=== PATIENT | male | born 1975 | race Caucasian/White ===

== ENCOUNTER 2019-09-15 08:06 | Observation (INO) ==
[~2019-09-15 08:06] MED LIST: Total Joint Mixture (50 ml) IR ONE
[2019-09-15] MEDS ORDERED: *HR* FentaNYL (PF) 100 MCG/2 ML VIAL ONE (08:11)
[2019-09-15] MEDS ORDERED: Lidocaine -MPF 2% 2 ML VIAL ONE (08:11)
[2019-09-15] MEDS ORDERED: *HR* Midazolam HCl 2 MG/2 ML VIAL ONE (08:11)
[2019-09-15] MEDS ORDERED: Ondansetron 4 MG/2 ML VIAL ONE (08:11)
[2019-09-15] MEDS ORDERED: *HR* Propofol 200 MG/20 ML VIAL IVP ONE ×2 (08:11→11:07)
[2019-09-15] MEDS ORDERED: Propofol 500 MG/50 ML INFUS..BTL ONE ×3 (08:14→10:34)
[2019-09-15] MEDS ORDERED: CeFAZolin Syr 2,000MG/20 ML 2,000 MG/20 ML SYRINGE IVPB ONE (08:21)
[2019-09-15] MEDS ORDERED: Albuterol 2.5 MG/3 ML NEBULIZER IH PRN (08:21)
[2019-09-15] MEDS ORDERED: Ringers Solution, Lactated 1,000 ML IVC SCH (08:30)
[2019-09-15] MEDS ORDERED: Acetaminophen IV 1,000 MG/100 ML INFUS..BTL IVPB ONE (08:50)
[2019-09-15] MEDS ORDERED: *HR* Meperidine 25 MG/ML SYRINGE IVP PRN (08:50)
[2019-09-15] MEDS ORDERED: *HR* OxyCODONE Immed Rel 5 MG TABLET PO PRN (08:50)
[2019-09-15] MEDS ORDERED: *HR* Promethazine 25 MG/ML VIAL IVP PRN ×2 (08:50→12:52)
[2019-09-15] MEDS ORDERED: *HR* HYDROmorphone (PF) 1 MG/ML SYRINGE IVP PRN (08:50)
[2019-09-15] MEDS ORDERED: *HR* Midazolam HCl 2 MG/2 ML VIAL IVP PRN (08:50)
[2019-09-15] MEDS ORDERED: Ondansetron ODT 4 MG TAB.RAPDIS SL ONE (08:50)
[2019-09-15] MEDS ORDERED: *HR* FentaNYL (PF) 100 MCG/2 ML VIAL IVP PRN (08:50)
[2019-09-15] MEDS ORDERED: Famotidine 20 MG/2 ML VIAL IVP ONE (08:50)
[2019-09-15] MEDS ORDERED: diazePAM 5 MG TABLET PO ONE (08:50)
[2019-09-15] MEDS ORDERED: ROPIVACAINE/PF/NS 0.25% 1 EACH SYRINGE INTRAART ONE (09:00)
[2019-09-15] MEDS ORDERED: Lidocaine -MPF 2% 5 ML VIAL ONE (09:08)
[2019-09-15] MEDS ORDERED: *HR* PHENYLEPHRINE 1,000 MCG/10 ML SYRINGE IVP ONE ×2 (09:35→10:46)
[2019-09-15] MEDS ORDERED: Tranexamic Acid 1,000 MG/10 ML VIAL ONE (09:45)
[2019-09-15] MEDS ORDERED: Dexamethasone 4 MG/ML VIAL ONE (10:26)
[2019-09-15] MEDS ORDERED: Ethanol\\Acetic Acid\\Na Ace\\Ben 1,000 ML IRRIG.SOLN IR ONE (11:39)
[2019-09-15 12:07] LABS: Hematocrit 41.2 % (37.5-50.1); Hemoglobin 14.2 g/dL (12.9-16.9)
[2019-09-15] MEDS ORDERED: Naloxone 0.4 MG/ML INJ IVP PRN (12:52)
[2019-09-15] MEDS ORDERED: Sennosides 8.6 MG TABLET PO PRN (12:52)
[2019-09-15] MEDS ORDERED: Ondansetron 4 MG/2 ML VIAL IVP PRN (12:52)
[2019-09-15] MEDS ORDERED: Temazepam 15 MG CAPSULE PO PRN (12:52)
[2019-09-15] MEDS ORDERED: MOM Conc 10 ML UD.LIQ PO PRN (12:52)
[2019-09-15] MEDS: Loratadine 10 MG TABLET PO SCH (14:20)
[2019-09-15] MEDS: Gabapentin 300 MG CAPSULE PO SCH ×3 (14:21→20:47)
[2019-09-15] MEDS: Multivit/Ca/Min/Fe/FA 1 TAB TABLET PO SCH (14:21)
[2019-09-15] MEDS: Ketorolac 30 MG/ML VIAL IVP SCH ×2 (14:21→17:56)
[2019-09-15] MEDS: HYDROcodone BIT/Homatropine 5 MG TABLET PO PRN ×2 (16:47→20:47)
[2019-09-15] MEDS: Ascorbic Acid 500 MG TABLET PO SCH (16:47)
[2019-09-15] MEDS: *HR* OxyCODONE Immed Rel 5 MG TABLET PO PRN ×2 (19:01→23:03)
[2019-09-15] MEDS: Ringers Solution, Lactated 1,000 ML IVC SCH (20:37)
[2019-09-16] MEDS: Ketorolac 30 MG/ML VIAL IVP SCH ×4 (00:05→17:17)
[2019-09-16] MEDS: HYDROcodone BIT/Homatropine 5 MG TABLET PO PRN ×2 (02:15→18:28)
[2019-09-16] MEDS: *HR* OxyCODONE Immed Rel 5 MG TABLET PO PRN ×4 (03:08→23:16)
[2019-09-16] MEDS ORDERED: *HR* HYDROmorphone (PF) 1 MG/ML SYRINGE IVP PRN (04:41)
[2019-09-16] MEDS: *HR* Enoxaparin 30 MG/0.3 ML SYRINGE SQ SCH ×2 (06:24→17:18)
[2019-09-16] MEDS: Ascorbic Acid 500 MG TABLET PO SCH ×2 (08:55→15:08)
[2019-09-16] MEDS: Gabapentin 300 MG CAPSULE PO SCH ×3 (08:55→19:54)
[2019-09-16] MEDS: Multivit/Ca/Min/Fe/FA 1 TAB TABLET PO SCH (08:55)
[2019-09-16] MEDS: Loratadine 10 MG TABLET PO SCH (08:56)
[2019-09-16] MEDS: Ringers Solution, Lactated 1,000 ML IVC SCH ×2 (08:57→14:43)
[2019-09-16 09:31] LABS: Basophils % 0.1 %; Eosinophils % 0.1 %; Hematocrit 35.3 % (37.5-50.1); Immature Granulocytes % 0.4 % (0-4); Lymphocytes # 2.3 K/mcL (0.6-4.6); Lymphocytes % 16.7 %; Mean Corpuscular HGB Conc 33.7 g/dL (31.6-35.5); Mean Corpuscular Hemoglobin 31.2 pg (28.0-33.3); Mean Corpuscular Volume 92.4 fL (83.0-100.0); Mean Platelet Volume 10.8 fL (9.4-12.4); Monocytes % 7.4 %; Neutrophils # 10.2 K/mcL (1.6-8.9); Platelet Count 217 K/mcL (140-400); Red Blood Count 3.82 M/mcL (4.19-5.50); Red Cell Distribution Width 11.6 % (11.5-14.5); Segmented Neutrophils % 75.3 %; White Blood Count 13.5 K/mcL (4.3-11.1)
[2019-09-16 09:36] LABS: Hemoglobin 11.9 g/dL (12.9-16.9)
[2019-09-16 09:49] LABS: BUN/Creatinine Ratio 13 (6-26); Blood Urea Nitrogen 14 mg/dL (6-20); Carbon Dioxide 24 mEq/L (23-29); Chloride 100 mEq/L (98-107); Glucose 158 mg/dL (70-105); Osmolality,Calculated 278 (280-300); Sodium 132 mEq/L (136-145); eGFR For African Americans > 60 (> 60); eGFR For Non-African Americans > 60 (> 60)
[2019-09-17] MEDS: *HR* OxyCODONE Immed Rel 5 MG TABLET PO PRN ×5 (03:11→19:31)
[2019-09-17] MEDS: *HR* Enoxaparin 30 MG/0.3 ML SYRINGE SQ SCH ×2 (05:03→17:19)
[2019-09-17 05:56] LABS: Basophils % 0.2 %; Eosinophils # 0.1 K/mcL (0.0-0.6); Eosinophils % 1.3 %; Hematocrit 30.6 % (37.5-50.1); Immature Granulocytes % 0.2 % (0-4); Lymphocytes # 2.8 K/mcL (0.6-4.6); Lymphocytes % 31.1 %; Mean Corpuscular Hemoglobin 30.9 pg (28.0-33.3); Mean Corpuscular Volume 93.6 fL (83.0-100.0); Mean Platelet Volume 11.6 fL (9.4-12.4); Monocytes # 0.8 K/mcL (0.0-1.3); Neutrophils # 5.3 K/mcL (1.6-8.9); Platelet Count 170 K/mcL (140-400); Red Blood Count 3.27 M/mcL (4.19-5.50); Red Cell Distribution Width 11.9 % (11.5-14.5); Segmented Neutrophils % 58.2 %; White Blood Count 9.1 K/mcL (4.3-11.1)
[2019-09-17 06:04] LABS: Hemoglobin 10.1 g/dL (12.9-16.9)
[2019-09-17 06:13] LABS: BUN/Creatinine Ratio 16 (6-26); Blood Urea Nitrogen 15 mg/dL (6-20); Calcium 8.3 mg/dL (8.6-10.3); Carbon Dioxide 24 mEq/L (23-29); Chloride 102 mEq/L (98-107); Glucose 126 mg/dL (70-105); Osmolality,Calculated 280 (280-300); Potassium 3.6 mEq/L (3.5-5.1); Sodium 134 mEq/L (136-145); eGFR For African Americans > 60 (> 60); eGFR For Non-African Americans > 60 (> 60)
[2019-09-17] MEDS: Gabapentin 300 MG CAPSULE PO SCH ×3 (07:41→20:56)
[2019-09-17] MEDS: Ascorbic Acid 500 MG TABLET PO SCH ×2 (07:42→17:19)
[2019-09-17] MEDS: Multivit/Ca/Min/Fe/FA 1 TAB TABLET PO SCH (07:42)
[2019-09-17] MEDS: Loratadine 10 MG TABLET PO SCH (07:42)
[2019-09-17] MEDS: HYDROcodone BIT/Homatropine 5 MG TABLET PO PRN ×3 (09:26→18:53)
[2019-09-17] MEDS ORDERED: *HR* FentaNYL PATCH 12 MCG PATCH TD SCH (15:15)
[2019-09-17] MEDS: Ketorolac 30 MG/ML VIAL IVP PRN (20:56)
[2019-09-18] MEDS: Acetaminophen IV 1,000 MG/100 ML INFUS..BTL IVPB SCH ×4 (00:59→18:04)
[2019-09-18] MEDS: *HR* Enoxaparin 30 MG/0.3 ML SYRINGE SQ SCH ×2 (05:52→18:05)
[2019-09-18 07:30] LABS: BUN/Creatinine Ratio 15 (6-26); Blood Urea Nitrogen 13 mg/dL (6-20); Calcium 8.5 mg/dL (8.6-10.3); Carbon Dioxide 28 mEq/L (23-29); Chloride 100 mEq/L (98-107); Glucose 118 mg/dL (70-105); Osmolality,Calculated 281 (280-300); Potassium 3.8 mEq/L (3.5-5.1); Sodium 135 mEq/L (136-145); eGFR For African Americans > 60 (> 60); eGFR For Non-African Americans > 60 (> 60)
[2019-09-18] MEDS: Multivit/Ca/Min/Fe/FA 1 TAB TABLET PO SCH (08:42)
[2019-09-18] MEDS: Gabapentin 300 MG CAPSULE PO SCH ×3 (08:42→20:31)
[2019-09-18] MEDS: Loratadine 10 MG TABLET PO SCH (08:43)
[2019-09-18] MEDS: Ascorbic Acid 500 MG TABLET PO SCH ×2 (08:43→15:47)
[2019-09-18] MEDS: *HR* OxyCODONE Immed Rel 5 MG TABLET PO PRN ×3 (09:55→23:44)
[2019-09-18] MEDS: Ringers Solution, Lactated 1,000 ML IVC SCH ×2 (19:30→20:31)
[2019-09-18] MEDS: HYDROcodone BIT/Homatropine 5 MG TABLET PO PRN (20:31)
[2019-09-19] MEDS: Acetaminophen IV 1,000 MG/100 ML INFUS..BTL IVPB SCH ×4 (01:16→18:11)
[2019-09-19] MEDS: *HR* OxyCODONE Immed Rel 5 MG TABLET PO PRN ×3 (03:58→18:37)
[2019-09-19] MEDS: *HR* Enoxaparin 30 MG/0.3 ML SYRINGE SQ SCH ×2 (06:06→18:12)
[2019-09-19 06:09] LABS: Hematocrit 26.9 % (37.5-50.1); Hemoglobin 9.4 g/dL (12.9-16.9); Mean Corpuscular HGB Conc 34.9 g/dL (31.6-35.5); Mean Corpuscular Hemoglobin 31.1 pg (28.0-33.3); Mean Corpuscular Volume 89.1 fL (83.0-100.0); Mean Platelet Volume 10.8 fL (9.4-12.4); Platelet Count 200 K/mcL (140-400); Red Blood Count 3.02 M/mcL (4.19-5.50); Red Cell Distribution Width 11.8 % (11.5-14.5); White Blood Count 6.9 K/mcL (4.3-11.1)
[2019-09-19 06:35] LABS: BUN/Creatinine Ratio 13 (6-26); Blood Urea Nitrogen 11 mg/dL (6-20); Calcium 8.6 mg/dL (8.6-10.3); Carbon Dioxide 27 mEq/L (23-29); Chloride 101 mEq/L (98-107); Glucose 118 mg/dL (70-105); Osmolality,Calculated 286 (280-300); Potassium 3.5 mEq/L (3.5-5.1); Sodium 138 mEq/L (136-145); eGFR For African Americans > 60 (> 60); eGFR For Non-African Americans > 60 (> 60)
[2019-09-19] MEDS: Multivit/Ca/Min/Fe/FA 1 TAB TABLET PO SCH (07:33)
[2019-09-19] MEDS: Gabapentin 300 MG CAPSULE PO SCH ×3 (07:33→20:26)
[2019-09-19] MEDS: Loratadine 10 MG TABLET PO SCH (07:33)
[2019-09-19] MEDS: Ascorbic Acid 500 MG TABLET PO SCH ×2 (07:33→16:06)
[2019-09-19] MEDS: HYDROcodone BIT/Homatropine 5 MG TABLET PO PRN ×2 (08:31→14:43)
[2019-09-19] MEDS: Ringers Solution, Lactated 1,000 ML IVC SCH ×2 (10:12→20:43)
[2019-09-20] MEDS: Acetaminophen IV 1,000 MG/100 ML INFUS..BTL IVPB SCH ×2 (00:04→05:30)
[2019-09-20 04:48] LABS: Hematocrit 26.2 % (37.5-50.1); Mean Corpuscular HGB Conc 34.4 g/dL (31.6-35.5); Mean Corpuscular Hemoglobin 30.8 pg (28.0-33.3); Mean Corpuscular Volume 89.7 fL (83.0-100.0); Mean Platelet Volume 10.4 fL (9.4-12.4); Platelet Count 232 K/mcL (140-400); Red Blood Count 2.92 M/mcL (4.19-5.50); Red Cell Distribution Width 11.7 % (11.5-14.5); White Blood Count 6.4 K/mcL (4.3-11.1)
[2019-09-20 05:03] LABS: BUN/Creatinine Ratio 13 (6-26); Blood Urea Nitrogen 12 mg/dL (6-20); Calcium 8.6 mg/dL (8.6-10.3); Carbon Dioxide 27 mEq/L (23-29); Chloride 101 mEq/L (98-107); Glucose 104 mg/dL (70-105); Osmolality,Calculated 282 (280-300); Potassium 3.7 mEq/L (3.5-5.1); Sodium 136 mEq/L (136-145); eGFR For African Americans > 60 (> 60); eGFR For Non-African Americans > 60 (> 60)
[2019-09-20] MEDS: *HR* Enoxaparin 30 MG/0.3 ML SYRINGE SQ SCH ×2 (05:34→16:53)
[2019-09-20] MEDS: Gabapentin 300 MG CAPSULE PO SCH ×3 (08:27→20:45)
[2019-09-20] MEDS: Multivit/Ca/Min/Fe/FA 1 TAB TABLET PO SCH (08:27)
[2019-09-20] MEDS: Loratadine 10 MG TABLET PO SCH (08:27)
[2019-09-20] MEDS: Ascorbic Acid 500 MG TABLET PO SCH ×2 (08:27→16:53)
[2019-09-20] MEDS: Ketorolac 30 MG/ML VIAL IVP PRN (09:08)
[2019-09-20] MEDS: *HR* OxyCODONE Immed Rel 5 MG TABLET PO PRN (09:08)
[2019-09-20] MEDS ORDERED: diazePAM 2 MG TABLET PO PRN (11:15)
[2019-09-20] MEDS: *HR* OxyCODONE Immed Rel 5 MG TABLET PO SCH ×2 (12:30→16:52)
[2019-09-20] MEDS: Acetaminophen 325 MG TABLET PO SCH ×3 (12:30→23:13)
[2019-09-20] MEDS: tiZANidine 4 MG TABLET PO SCH ×4 (13:40→20:45)
[2019-09-21] MEDS: *HR* Enoxaparin 30 MG/0.3 ML SYRINGE SQ SCH ×2 (05:03→18:55)
[2019-09-21] MEDS: Acetaminophen 325 MG TABLET PO SCH ×3 (05:03→16:27)
[2019-09-21] MEDS: Multivit/Ca/Min/Fe/FA 1 TAB TABLET PO SCH (07:45)
[2019-09-21] MEDS: Gabapentin 300 MG CAPSULE PO SCH ×3 (07:46→20:53)
[2019-09-21] MEDS: Ascorbic Acid 500 MG TABLET PO SCH ×2 (07:46→16:26)
[2019-09-21] MEDS: Loratadine 10 MG TABLET PO SCH (07:47)
[2019-09-21] MEDS: *HR* OxyCODONE Immed Rel 5 MG TABLET PO PRN ×3 (07:47→16:27)
[2019-09-21] MEDS: tiZANidine 4 MG TABLET PO SCH ×4 (07:47→20:53)
[2019-09-21 11:54] LABS: Hematocrit 28.4 % (37.5-50.1); Hemoglobin 9.6 g/dL (12.9-16.9)
[2019-09-22] MEDS: Acetaminophen 325 MG TABLET PO SCH ×4 (00:13→17:43)
[2019-09-22] MEDS: *HR* Enoxaparin 30 MG/0.3 ML SYRINGE SQ SCH ×2 (05:36→17:43)
[2019-09-22] MEDS: tiZANidine 4 MG TABLET PO SCH ×4 (09:52→20:00)
[2019-09-22] MEDS: Loratadine 10 MG TABLET PO SCH (09:52)
[2019-09-22] MEDS: Gabapentin 300 MG CAPSULE PO SCH ×3 (09:52→19:59)
[2019-09-22] MEDS: Ascorbic Acid 500 MG TABLET PO SCH ×2 (09:52→15:14)
[2019-09-22] MEDS: Multivit/Ca/Min/Fe/FA 1 TAB TABLET PO SCH (09:52)
[2019-09-22 09:55] LABS: Hematocrit 28.3 % (37.5-50.1); Hemoglobin 9.4 g/dL (12.9-16.9); Mean Corpuscular HGB Conc 33.2 g/dL (31.6-35.5); Mean Corpuscular Hemoglobin 30.9 pg (28.0-33.3); Mean Corpuscular Volume 93.1 fL (83.0-100.0); Mean Platelet Volume 9.9 fL (9.4-12.4); Platelet Count 298 K/mcL (140-400); Red Blood Count 3.04 M/mcL (4.19-5.50); Red Cell Distribution Width 11.9 % (11.5-14.5); White Blood Count 7.3 K/mcL (4.3-11.1)
[2019-09-22] MEDS: *HR* OxyCODONE Immed Rel 5 MG TABLET PO PRN ×2 (10:02→15:15)
[2019-09-22 10:15] LABS: BUN/Creatinine Ratio 16 (6-26); Blood Urea Nitrogen 14 mg/dL (6-20); Calcium 8.8 mg/dL (8.6-10.3); Carbon Dioxide 26 mEq/L (23-29); Chloride 103 mEq/L (98-107); Glucose 115 mg/dL (70-105); Osmolality,Calculated 285 (280-300); Potassium 3.8 mEq/L (3.5-5.1); Sodium 137 mEq/L (136-145); eGFR For African Americans > 60 (> 60); eGFR For Non-African Americans > 60 (> 60)
[2019-09-23] MEDS: Acetaminophen 325 MG TABLET PO SCH ×4 (00:43→17:48)
[2019-09-23] MEDS: *HR* Enoxaparin 30 MG/0.3 ML SYRINGE SQ SCH ×2 (06:19→17:48)
[2019-09-23] MEDS: Gabapentin 300 MG CAPSULE PO SCH ×3 (09:21→20:25)
[2019-09-23] MEDS: Loratadine 10 MG TABLET PO SCH (09:21)
[2019-09-23] MEDS: Multivit/Ca/Min/Fe/FA 1 TAB TABLET PO SCH (09:21)
[2019-09-23] MEDS: Ascorbic Acid 500 MG TABLET PO SCH ×2 (09:21→17:48)
[2019-09-23] MEDS: tiZANidine 4 MG TABLET PO SCH ×4 (09:21→20:25)
[2019-09-23 11:11] LABS: Hematocrit 29.5 % (37.5-50.1); Hemoglobin 10.2 g/dL (12.9-16.9); Mean Corpuscular HGB Conc 34.6 g/dL (31.6-35.5); Mean Corpuscular Hemoglobin 30.7 pg (28.0-33.3); Mean Corpuscular Volume 88.9 fL (83.0-100.0); Mean Platelet Volume 9.5 fL (9.4-12.4); Platelet Count 378 K/mcL (140-400); Red Blood Count 3.32 M/mcL (4.19-5.50); White Blood Count 7.6 K/mcL (4.3-11.1)
[2019-09-23 11:30] LABS: BUN/Creatinine Ratio 14 (6-26); Blood Urea Nitrogen 13 mg/dL (6-20); Calcium 8.8 mg/dL (8.6-10.3); Carbon Dioxide 23 mEq/L (23-29); Chloride 103 mEq/L (98-107); Glucose 108 mg/dL (70-105); Osmolality,Calculated 281 (280-300); Sodium 135 mEq/L (136-145); eGFR For African Americans > 60 (> 60); eGFR For Non-African Americans > 60 (> 60)
[2019-09-24] MEDS: Acetaminophen 325 MG TABLET PO SCH ×5 (00:06→23:13)
[2019-09-24 01:19] LABS: Hematocrit 27.9 % (37.5-50.1); Hemoglobin 9.3 g/dL (12.9-16.9); Mean Corpuscular HGB Conc 33.3 g/dL (31.6-35.5); Mean Corpuscular Hemoglobin 30.5 pg (28.0-33.3); Mean Corpuscular Volume 91.5 fL (83.0-100.0); Mean Platelet Volume 9.5 fL (9.4-12.4); Platelet Count 352 K/mcL (140-400); Red Blood Count 3.05 M/mcL (4.19-5.50); White Blood Count 7.1 K/mcL (4.3-11.1)
[2019-09-24 01:34] LABS: BUN/Creatinine Ratio 17 (6-26); Blood Urea Nitrogen 15 mg/dL (6-20); Calcium 8.6 mg/dL (8.6-10.3); Carbon Dioxide 25 mEq/L (23-29); Chloride 105 mEq/L (98-107); Glucose 93 mg/dL (70-105); Osmolality,Calculated 287 (280-300); Potassium 3.8 mEq/L (3.5-5.1); Sodium 138 mEq/L (136-145); eGFR For African Americans > 60 (> 60); eGFR For Non-African Americans > 60 (> 60)
[2019-09-24] MEDS: *HR* Enoxaparin 30 MG/0.3 ML SYRINGE SQ SCH ×2 (05:22→18:08)
[2019-09-24] MEDS: Multivit/Ca/Min/Fe/FA 1 TAB TABLET PO SCH (08:49)
[2019-09-24] MEDS: Ascorbic Acid 500 MG TABLET PO SCH ×2 (08:49→18:08)
[2019-09-24] MEDS: Gabapentin 300 MG CAPSULE PO SCH ×3 (08:50→20:59)
[2019-09-24] MEDS: Loratadine 10 MG TABLET PO SCH (08:50)
[2019-09-24] MEDS: tiZANidine 4 MG TABLET PO SCH ×4 (08:50→20:59)
[2019-09-25] MEDS: *HR* Enoxaparin 30 MG/0.3 ML SYRINGE SQ SCH ×2 (05:36→16:41)
[2019-09-25] MEDS: Acetaminophen 325 MG TABLET PO SCH ×4 (05:36→23:00)
[2019-09-25] MEDS: Gabapentin 300 MG CAPSULE PO SCH ×3 (07:45→20:07)
[2019-09-25] MEDS: Loratadine 10 MG TABLET PO SCH (07:46)
[2019-09-25] MEDS: Multivit/Ca/Min/Fe/FA 1 TAB TABLET PO SCH (07:46)
[2019-09-25] MEDS: tiZANidine 4 MG TABLET PO SCH ×4 (07:46→20:07)
[2019-09-25] MEDS: Ascorbic Acid 500 MG TABLET PO SCH ×2 (07:46→16:41)
[2019-09-26] MEDS: Acetaminophen 325 MG TABLET PO SCH (05:41)
[2019-09-26] MEDS: *HR* Enoxaparin 30 MG/0.3 ML SYRINGE SQ SCH (05:41)
[2019-09-26] MEDS: tiZANidine 4 MG TABLET PO SCH (07:27)
[2019-09-26] MEDS: Gabapentin 300 MG CAPSULE PO SCH (07:27)
[2019-09-26] MEDS: Ascorbic Acid 500 MG TABLET PO SCH (07:27)
[2019-09-26] MEDS: Loratadine 10 MG TABLET PO SCH (07:28)
[2019-09-26] MEDS: Multivit/Ca/Min/Fe/FA 1 TAB TABLET PO SCH (07:28)
[2019-09-26] MEDS ORDERED: FLU Vac QV 19-20 (6Month+)/PF 0.5 ML SYRINGE IM ONE (07:30)
[2019-09-26 08:23] VITALS: BP 111/68
== END 2019-09-26 12:30 ==
LOC: SAMDAY 08:06 → 3NENU 12:53 → INTOOBSV 09-16 14:20 → 3NENU 09-16 14:20
PROVIDERS: ADMIT Orthopaedic Surgery; ATTEND Orthopaedic Surgery